=== PATIENT | female | born 1990 ===

== ENCOUNTER 2020-09-03 18:16 | Inpatient (IN) | payer OTHER ==
[~2020-09-03] VITALS: Ht 160 cm; Wt 72.6 kg
[~2020-09-03 18:16] MED LIST: NIFE60TA3 PO
[2020-09-05] MEDS ORDERED: PRENATAL + DHA1 EAC1 PO (13:44)
== END 2020-09-10 11:00 | disposition home or self-care (01) | DRG 832 ==
LOC: ER 18:16 → LDR 20:29 → OB/GYN 20:29 → LDR 22:16
PROVIDERS: ADMIT Obstetrics & Gynecology; ATTEND Obstetrics & Gynecology
PROC: 4A1HXFZ Monitoring of Products of Conception, Cardiac Rhythm, External Approach (ICD-10-PCS; principal; 2020-09-03)
DX: O22.32 Deep phlebothrombosis in pregnancy, second trimester (principal); I82.422 Acute embolism and thrombosis of left iliac vein; I82.432 Acute embolism and thrombosis of left popliteal vein; Z3A.19 19 weeks gestation of pregnancy; D57.3 Sickle-cell trait; Z20.822 Contact with and (suspected) exposure to COVID-19

== ENCOUNTER 2023-12-08 08:03 | Outpatient (CLI) | payer OTHER ==
[~2023-12-08 08:03] MED LIST changes: +PRENATAL + DHA1 EAC1 PO
== END 2023-12-08 08:06 | disposition home or self-care (01) ==
LOC: PRENATAL 08:03
PROVIDERS: ATTEND Obstetrics & Gynecology Maternal & Fetal Medicine
DX: O35.9XX0 Maternal care for (suspected) fetal abnormality and damage, unspecified, not applicable or unspecified (principal); O35.3XX0 Maternal care for (suspected) damage to fetus from viral disease in mother, not applicable or unspecified; O44.00 Complete placenta previa NOS or without hemorrhage, unspecified trimester; Z3A.19 19 weeks gestation of pregnancy

== ENCOUNTER → 2024-02-29 14:46 | Outpatient (CLI) | payer OTHER | END | disposition home or self-care (01) | LOC: PRENATAL 14:46 | PROVIDERS: ATTEND Obstetrics & Gynecology Maternal & Fetal Medicine | DX: O26.843 Uterine size-date discrepancy, third trimester (principal); O36.8130 Decreased fetal movements, third trimester, not applicable or unspecified; O44.03 Complete placenta previa NOS or without hemorrhage, third trimester; O24.419 Gestational diabetes mellitus in pregnancy, unspecified control; Z3A.32 32 weeks gestation of pregnancy ==

== ENCOUNTER 2024-03-28 14:04 | Outpatient (CLI) | payer OTHER | END 2024-03-28 14:05 | disposition home or self-care (01) | LOC: PRENATAL 14:04 | PROVIDERS: ATTEND Obstetrics & Gynecology Maternal & Fetal Medicine | DX: O26.843 Uterine size-date discrepancy, third trimester (principal); O24.419 Gestational diabetes mellitus in pregnancy, unspecified control; O36.8130 Decreased fetal movements, third trimester, not applicable or unspecified; O44.03 Complete placenta previa NOS or without hemorrhage, third trimester; O99.891 Other specified diseases and conditions complicating pregnancy; Z3A.35 35 weeks gestation of pregnancy ==